=== PATIENT | male | born 1990 | race Two or more races ===

== ENCOUNTER → 2019-06-09 | Outpatient (CLI) | payer OTHER | END | disposition home or self-care (01) | LOC: EEVIPCON 13:43 → RAH 13:43 | PROVIDERS: ATTEND Internal Medicine | DX: N48.9 Disorder of penis, unspecified (principal) | CPT/HCPCS: 72100 ==

== ENCOUNTER → 2019-07-16 | Outpatient (CLI) | payer OTHER | END | disposition home or self-care (01) | LOC: RAH 10:56 → EEVIPCON 10:56 | PROVIDERS: ATTEND Internal Medicine | DX: N50.811 Right testicular pain (principal); N48.9 Disorder of penis, unspecified; N39.0 Urinary tract infection, site not specified | CPT/HCPCS: 76870 ==